=== PATIENT | male | born 1965 | race African-American/Black ===

== ENCOUNTER 2023-04-10 14:11 | Emergency (ER) | payer OTHER ==
[2023-04-10 14:44] VITALS: RESP 17; TEMP 98.9; BMI 53.8
[2023-04-10] MEDS ORDERED: ACETAMINOPHEN 500 MG TABLET (FP) PO ONE (15:43)
[2023-04-10] MEDS ORDERED: LIDOCAINE HCL 2% JELLY 10 ML CARTRIDGE PR ONE (15:49)
[2023-04-10] MEDS ORDERED: LIDOCAINE HCL 2% JELLY 6 ML TP ONE (15:54)
[2023-04-10] MEDS ORDERED: ACETAMINOPHEN 325 MG TABLET (FP) ONE (15:56)
[2023-04-10 16:38] VITALS: BP 150/69; PULSE 92
== END 2023-04-10 18:00 | disposition home or self-care (01) ==
LOC: JER 14:11
DX: K64.4 Residual hemorrhoidal skin tags (principal); K62.89 Other specified diseases of anus and rectum
CPT/HCPCS: 99283-25